=== PATIENT | male | born 1970 | race Caucasian/White ===

== ENCOUNTER 2016-12-07 16:16 | Emergency (ER) | payer OTHER ==
[~2016-12-07] VITALS: Ht 180.3 cm; Wt 136.0 kg
[2016-12-07 16:28] VITALS: BP 154/111; PULSE 105; RESP 16; TEMP 98.8; O2SAT 94
[2016-12-07] MEDS ORDERED: PENICILLIN (16:40)
[2016-12-07 16:42] LABS: BLOOD, URINE SMALL (NEG); GLUCOSE,URINE NEG (NEG); KETONE, URINE NEG (NEG); NITRITE,URINE NEG (NEG); PH, URINE 5.5 (5.0-8.5)
[2016-12-07 16:48] LABS: METHOD OF COLLECTION CLEAN CATCH; URINE COLOR YELLOW (YELLW/STRAW)
[2016-12-07 16:49] LABS: COMMENT (UR) CULT NOT INDICATED; CULTURE IF INDICATED CULT NOT INDICATED; SQUAMOUS EPITHELIAL CELL URINE 0-5 /hpf (0-5)
[2016-12-07] MEDS ORDERED: SODIUM CHLOR 0.9% 1000 ML INJ 1,000 ML IV ONE (17:00)
[2016-12-07] MEDS ORDERED: KETOROLAC TROMETHAMINE 30 MG/ML (IVP) VIAL IVP ONE (17:00)
[2016-12-07] MEDS ORDERED: SODIUM CHLORIDE 0.9% FLUSH 10 ML FLUSH IVF PRN (17:00)
[2016-12-07] MEDS ORDERED: ONDANSETRON HCL 4 MG/2 ML VIAL IVP ONE (17:00)
[2016-12-07 17:26] LABS: AUTOMATED NEUTROPHIL # 11.1 TH/MM3 (1.8-7.7); BASOPHIL # 0.1 TH/MM3 (0-0.2); BASOPHIL % 0.5 % (0.0-2.0); EOSINOPHIL # 0.1 TH/MM3 (0-0.4); EOSINOPHIL % 0.4 % (0.0-4.0); HEMATOCRIT 45.9 % (39.0-51.0); HEMO FLAGS DIFF FINAL; LYMPH % 8.3 % (9.0-44.0); LYMPHOCYTE # 1.1 TH/MM3 (1.0-4.8); MEAN CELL VOLUME 81.3 FL (80.0-100.0); MEAN CORPUSCULAR HEMOGLOBIN 27.6 PG (27.0-34.0); MONO % 8.3 % (0.0-8.0); NEUT % 82.5 % (16.0-70.0); PLATELET COUNT 230 TH/MM3 (150-450); RED BLOOD COUNT 5.65 MIL/MM3 (4.50-5.90); RED CELL DISTRIBUTION WIDTH 12.6 % (11.6-17.2); WHITE BLOOD COUNT 13.5 TH/MM3 (4.0-11.0)
[2016-12-07 17:34] LABS: BICARBONATE 27.7 MEQ/L (21.0-32.0)
--- NOTE | 2016-12-07 17:36 | PD ---
HPI Chief Complaint: Complaint Time Seen by Provider: 16:51 Travel History International Travel<30 days: No Contact w/Intl Traveler<30days: No Traveled to known affect area: No History of Present Illness HPI 46-year-old male presents with left groin pain that is been present over the past couple of days. He states that he also hasn't had a bowel movement in a couple of days. He states that it starts in his back and goes around to his groin. Currently hurting mainly in his left lower abdomen. Quality pain is sharp. Severity is moderate. Pain is worse with movement. He denies other specific modifying factors. He denies recurrent history of this or kidney stones. PFSH Past Medical History Medical History: Denies Significant Hx Past Surgical History Other Surgery: Yes (VASECTOMY) Social History Alcohol Use: Yes Tobacco Use: No Substance Use: No Allergies-Medications (Allergen,Severity, Reaction): Coded Allergies: Clindamycin (Verified Allergy, Unknown, [place], 12/07/16) Reported Meds & Prescriptions Reported Meds & Active Scripts Active Flomax (Tamsulosin HCl) 0.4 Mg Cap 0.4 Mg PO HS stop when you pass your stone Percocet (Oxycodone-Acetaminophen) 5-325 mg Tab 1 Tab PO Q6H PRN Reported [Penicillin] Review of Systems Except as stated in HPI: all other systems reviewed are Neg Physical Exam Narrative GENERAL: Well-nourished, well-developed patient. Well-appearing SKIN: Warm and dry. HEAD: Normocephalic and atraumatic. EYES: No injection or drainage. ENT: No nasal drainage noted. NECK: Supple, trachea midline. CARDIOVASCULAR: Regular rate and rhythm RESPIRATORY: No increased effort. No accessory muscle use. GASTROINTESTINAL: Abdomen soft, tender to palpation left lower quadrant, nondistended. EXTREMITIES: No edema. BACK: Nontender without obvious deformity in midline, no CVA tenderness. NEUROLOGICAL: Awake and alert. Motor and sensory grossly within normal limits. Normal speech. Data Data Last Documented VS Vital Signs Date Time Temp Pulse Resp B/P Pulse Ox O2 Delivery O2 Flow Rate FiO2 12/07/16 18:11 94 20 125/74 95 12/07/16 16:28 98.8 Orders Urinalysis - C+S If Indicated (12/07/16 16:31) Basic Metabolic Panel (Bmp) (12/07/16 16:51) Complete Blood Count With Diff (12/07/16 16:51) Ct Abd/Pel W/O Iv Contrast (12/07/16 16:51) Ketorolac Inj (Toradol Inj) (12/07/16 17:00) Ondansetron Inj (Zofran Inj) (12/07/16 17:00) Sodium Chloride 0.9% Flush (Ns Flush) (12/07/16 17:00) Sodium Chlor 0.9% 1000 Ml Inj (Ns 1000 M (12/07/16 17:00) Labs Laboratory Tests Test 12/07/16 12/07/16 16:30 16:55 Urine Collection Type CLEAN CATCH Urine Color YELLOW Urine Turbidity CLEAR Urine pH 5.5 Urine Specific [place] 1.010 Urine Protein NEG mg/dL Urine Glucose (UA) NEG mg/dL Urine Ketones NEG mg/dL Urine Occult Blood SMALL Urine Nitrite NEG Urine Bilirubin NEG Urine Leukocyte Esterase NEG Urine RBC 4-9 /hpf Urine Squamous Epithelial 0-5 /hpf Cells Microscopic Urinalysis Comment CULT NOT INDICATED Urine Collection Time 16:30 White Blood Count 13.5 TH/MM3 Red Blood Count 5.65 MIL/MM3 Hemoglobin 15.6 GM/DL Hematocrit 45.9 % Mean Corpuscular Volume 81.3 FL Mean Corpuscular Hemoglobin 27.6 PG Mean Corpuscular Hemoglobin 34.0 % Concent Red Cell Distribution Width 12.6 % Platelet Count 230 TH/MM3 Mean Platelet Volume 7.4 FL Neutrophils (%) (Auto) 82.5 % Lymphocytes (%) (Auto) 8.3 % Monocytes (%) (Auto) 8.3 % Eosinophils (%) (Auto) 0.4 % Basophils (%) (Auto) 0.5 % Neutrophils # (Auto) 11.1 TH/MM3 Lymphocytes # (Auto) 1.1 TH/MM3 Monocytes # (Auto) 1.1 TH/MM3 Eosinophils # (Auto) 0.1 TH/MM3 Basophils # (Auto) 0.1 TH/MM3 CBC Comment DIFF FINAL Differential Comment Sodium Level 138 MEQ/L Potassium Level 4.0 MEQ/L Chloride Level 102 MEQ/L Carbon Dioxide Level 27.7 MEQ/L Anion Gap 8 MEQ/L Blood Urea Nitrogen 19 MG/DL Creatinine 1.30 MG/DL Estimat Glomerular Filtration 60 ML/MIN Rate Random Glucose 105 MG/DL Calcium Level 8.7 MG/DL MDM Medical Decision Making Medical Screen Exam Complete: Yes Emergency Medical Condition: Yes Medical Record Reviewed: Yes (past history confirm) Interpretation(s) CBC & BMP Diagram 12/07/16 16:55 Last 24 hours Impressions Abdomen/Pelvis CT 12/07/16 1651 Signed Impressions: Service Date/Time: Wednesday, December 07, 2016 17:12 - CONCLUSION: 1. Left-sided obstructive uropathy secondary to a 6 mm x 5 mm calculus at the left UVJ with [id number] left hydronephrosis. Nikhil Andrew MD Differential Diagnosis Diverticulitis, stone, UTI, musculoskeletal Narrative Course Will check blood work, urinalysis, CT scan abdominal pelvis and dose with pain medication, Zofran, fluids and reevaluate ed workup with uvj stone on left, patient feels better, will discuss with urology Patient denies any new complaints and states that they are feeling better. Patient happy with care, all questions answered. Patient knows that follow up is incumbent on them and to return to the emergency room immediately if new or worsening symptoms develop. Patient given strict return precautions, vitals reviewed and are normal, agrees to further workup as an outpatient. Physician Communication Physician Communication dr marie states to send home should pass on home, flomax and pain control Diagnosis Primary Impression: Left ureteral calculus Patient Instructions: General Instructions Additional Instructions: return as needed, follow with urology this week, percocet as needed for severe pain- don't take while driving, use OTC stool softener Med/Other Pt SpecificInfo: Prescription(s) given Scripts Tamsulosin (Flomax)0.4 Mg Cap0.4 Mg PO HS #7 CAP Ref 0 stop when you pass your stone Prov:Saba Aguilar MD 12/07/16 Oxycodone-Acetaminophen (Percocet)5-325 mg Tab1 Tab PO Q6H PRN (PAIN) #15 TAB Prov:Saba Aguilar MD 12/07/16 Disposition: 01 DISCHARGE HOME Condition: Stable Saba Aguilar MD Dec 07, 2016 17:36
--- NOTE | 2016-12-07 17:56 | RADHPO ---
EXAM DATE/TIME: 12/07/2016 17:12 [facility] COMPARISON: No previous studies available for comparison. INDICATIONS : Left flank pain. ORAL CONTRAST: No oral contrast ingested. RADIATION DOSE: 28.08 CTDIvol (mGy) MEDICAL HISTORY : None SURGICAL HISTORY : None. ENCOUNTER: Initial ACUITY: 1 day PAIN SCALE: 5/10 LOCATION: Left Flank TECHNIQUE: Volumetric scanning of the abdomen and pelvis was performed. Using automated exposure control and ad justment of the mA and/or kV according to patient size, radiation dose was kept as low as reasonably achievable to obtain optimal diagnostic quality images. FINDINGS: There is a left-sided obstructive uropathy above a 6 mm x 5 mm calculus at the left ureterovesical ju nction. There is mild to moderate left-sided hydronephrosis and perinephric stranding. No other urete ral or bladder calculi are identified. No other renal calculi are seen. Lung bases are clear. No acute findings in the liver, spleen, adrenals, right kidney or pancreas. No calcified gallstones. Mild constipation. No free fluid or free air. Small fat containing umbilical he rnia. CONCLUSION: 1. Left-sided obstructive uropathy secondary to a 6 mm x 5 mm calculus at the left UVJ with mild-to-m oderate left hydronephrosis. Nikhil Andrew MD on December 07, 2016 at 17:52 Board Certified Radiologist. This report was verified electronically.
[2016-12-07 18:11] VITALS: BP 125/74; PULSE 94; RESP 20; O2SAT 95
[2016-12-07] MEDS ORDERED: PERC5TAB12 PO (18:28)
[2016-12-07] MEDS ORDERED: TAMS5CAP PO (18:28)
== END 2016-12-07 18:48 | disposition home or self-care (01) ==
LOC: PHED 16:16
DX: N20.1 Calculus of ureter (principal)
CPT/HCPCS: 74176; 80048; 81001; 85025; 96361; 96374; 96375; 99284; J1885; J2405; J7030